=== PATIENT | female | born 1940 | race Caucasian/White ===

== ENCOUNTER → 2021-01-30 14:23 | Outpatient (CLI) | payer MEDICARE, SELFPAY ==
[2021-01-30 14:28] LABS: Campylobacter Not Detected (NotDetected); Clostridium Difficile A/B, PCR Not Detected (NotDetected); Plesimonas Shigalloides, PCR Not Detected (NotDetected); Salmonella, PCR Not Detected (NotDetected); Vibrio Cholerae Not Detected (NotDetected); Vibrio, PCR Not Detected (NotDetected); Yersinia Entercolitica, PCR Not Detected (NotDetected)
[2021-01-30 14:29] LABS: Adenovirus F 40/41, stool Not Detected (NotDetected); Astrovirus Not Detected (NotDetected); Cryptosporidium Not Detected (NotDetected); Cyclospora Cayetanesis Not Detected (NotDetected); Entamoeba histolytica Not Detected (NotDetected); Enteroaggregative E coli Not Detected (NotDetected); Enteropathogenic E coli Not Detected (NotDetected); Enterotoxigenic E coli Not Detected (NotDetected); Giardia lamblia Not Detected (NotDetected); Norovirus Not Detected (NotDetected); Rotavirus A Not Detected (NotDetected); Sapovirus Not Detected (NotDetected); Shiga-like toxin E coli Not Detected (NotDetected); Shigella Enterovasive E coli Not Detected (NotDetected)
== END ==
PROVIDERS: Visit Provider Internal Medicine Gastroenterology
DX: R19.7 Diarrhea, unspecified (principal)
CPT/HCPCS: 87506; 87507

== ENCOUNTER 2024-01-05 20:19 | Emergency (ER) | payer MEDICARE, SELFPAY ==
[2024-01-05 20:21] VITALS: BP 202/77; PULSE 70; RESP 16; TEMP 36.6; O2SAT 98; BMI 20.6
--- NOTE | 2024-01-05 21:00 | ED_ITS ---
Discharge Plan Disposition Patient Disposition: Home, Self-Care Condition: Good Prescriptions Prescriptions: New cephalexin 500 mg tablet 500 mg PO BID 10 Days Qty: 20 0RF mupirocin 2 % ointment 1 applic topical BID 7 Days Qty: 22 0RF No Action levothyroxine [Levo-T] 100 mcg tablet 100 mcg PO DAILY buspirone 15 mg tablet 15 mg PO BID sertraline [Zoloft] 50 mg tablet 50 mg PO DAILY cephalexin 500 mg capsule 500 mg PO BID 10 Days Qty: 20 0RF Referrals Follow up/Referrals: Vu Morelos MD [Primary Care Provider] - See instructions Activity Restrictions/Add. Instructions Additional Instructions/Restrictions: Monitor for temperature, redness, drainage Cleanse with soap and water and dry apply cream twice a day. Antibiotics as ordered Follow-up with primary care If symptoms worsen or do not improve return Clinical Impressions Clinical Impression: Puncture wound of abdomen with foreign body Instructions Patient Instructions: DI for Puncture Wound Print Language Print Language: Guatem[place] Discharge ED Provider: Nathalie Davenport General Adult HPI <Najma Roth ([facility]), SARAH - Last Filed: 01/05/24 21:13> General Chief complaint: Wound/Laceration Stated complaint: AO/ lac to LT leg Time Seen by Provider: 01/05/24 20:34 Mode of Arrival: Ambulatory Source of Information: Patient Limitations: No Limitations Description of Symptoms (Recalled from ER Triage Doc. by RN): PT reports that around 4pm she was picking tomotoes whem a thick dry weed cut her left lower leg around 4pm, reports that she was worried she would get a infection so thats why she came to ER, History of Present Illness HPI narrative: 84-year-old female presents for puncture wound with foreign body to left lower leg around 4 PM today while she was in the garden picking tomatoes. Patient states she was worried about having an infection so she wanted to checked out. Last known tetanus unknown. Related Data Home Medications ?Medication ?Instructions ?Recorded ?Confirmed buspirone 15 mg tablet 15 mg PO BID 10/27/18 10/27/18 levothyroxine 100 mcg tablet 100 mcg PO DAILY 10/27/18 10/27/18 (Levo-T) sertraline 50 mg tablet (Zoloft) 50 mg PO DAILY 10/27/18 10/27/18 Previous Rx's ?Medication ?Instructions ?Recorded cephalexin 500 mg capsule 500 mg PO BID skin infection 10 10/27/18 days #20 caps cephalexin 500 mg tablet 500 mg PO BID 10 days #20 tabs 01/05/24 mupirocin 2 % topical ointment 1 applic topical BID 7 days #22 01/05/24 grams Allergies Allergy/AdvReac Type Severity Reaction Status Date / Time Sulfa (Sulfonamide AdvReac Intermediate Verified 10/27/18 10:53 Antibiotics) PFS <Najma Roth ([facility]), [employer]LECT[employer] SYSTEMS DESIGN ENGINEER - Last Filed: 01/05/24 21:13> [facility] Disclaimer: The information contained in this section may have been updated after the patient was seen, as this information can be updated by other users. Social History Smoking Status: Never smoker alcohol intake: never substance use type: denies use current occupational status: retired Travel in the last 8 weeks: None household members: family housing: house <Najma Roth ([facility]), ELECTRICAL SYSTEMS DESIGN ENGINEER - Last Filed: 01/05/24 21:13> ROS Obtained: Yes Systems reviewed as appropriate & no additional complaints except as documented Physical Exam <Najma Roth ([facility]), ELECTR[employer] SYSTEM[employer] DESIGN ENGINEER - Last Filed: 01/05/24 21:13> General General appearance: alert and in no apparent distress Eye Eye exam: Present normal appearance and PERRL ENT ENT exam: Present normal exam Respiratory Respiratory exam: Present normal lung sounds bilaterally Cardiovascular Cardiovascular exam: Present regular rate and normal rhythm Expanded Lower Extremity Exam Left: Leg image: 2 1. Laceration with track foreign body present Neurological Exam Neurological exam: Present alert and oriented X3 Skin Skin exam: Present warm and other (A puncture wound) Medical Decision Making <Najma Roth ([facility]), ELECTRICAL SYSTEMS DESIGN ENGINEER - Last Filed: 01/05/24 21:13> Medical Records Medical records reviewed: Yes I reviewed the patient's medical records. Leonid Inquiry Pt receiving controlled substance: No Leonid was queried for this patient: No Vital Signs: 01/05/24 20:21 Temperature 97.9 F Temperature Source Oral Pulse Rate [Right] 70 Respiratory Rate 16 Blood Pressure [Right Arm] 202/77 H Blood Pressure Mean [Right Arm] 118 Blood Pressure Source [Right Arm] Automatic Cuff Blood Pressure Position [Right Arm] Sitting 02 Sat by Pulse Oximetry 98 Oxygen Delivery Method Room Air Orders (Tests/Meds): ED MEDICATIONS Discontinued Medications Generic Name Dose Route Start Last Admin Trade Name Freq PRN Reason Stop Dose Admin Cephalexin HCl 500 mg 01/05/24 21:06 01/05/24 21:12 Cephalexin 500mg Capsule PO 01/05/24 21:07 500 mg ONCE ONE Administration Tetanus/Reduced Diphtheria/Acell Pertussis 0.5 ml 01/05/24 21:07 01/05/24 21:15 Tet/Diphth/Pert-Adult 0.5ml Syringe IM 01/05/24 21:08 0.5 ml .ONCE ONE Administration Medical Decision Narrative: In summary patient is a 84-year-old female who presents to the emergency department for evaluation of puncture wound with foreign body to left lower extremity. Patient is hemodynamic stable upon arrival, afebrile. Laceration with puncture wound to the left lower extremity. Differential diagnosis includes laceration with foreign body. Initial workup will be conducted with while cleaning wound was noted foreign body present. Initial inventions include area was cleaned foreign body noted. Upon repeat evaluation area on leg was numbed with 4 mL 1% lidocaine, small incision and foreign body was removed with tweezers minimal blood loss. Given this patient is appropriate for discharge at this time we will do a prescription for Keflex 500mg p.o. for 10 days and Bactroban cream. Patient is to follow-up with primary care. Tetanus vaccine given. <Nathalie Davenport MD - Last Filed: 01/05/24 21:22> Vital Signs: 01/05/24 20:21 Temperature 97.9 F Temperature Source Oral Pulse Rate [Right] 70 Respiratory Rate 16 Blood Pressure [Right Arm] 202/77 H Blood Pressure Mean [Right Arm] 118 Blood Pressure Source [Right Arm] Automatic Cuff Blood Pressure Position [Right Arm] Sitting 02 Sat by Pulse Oximetry 98 Oxygen Delivery Method Room Air Orders (Tests/Meds): ED MEDICATIONS Discontinued Medications Generic Name Dose Route Start Last Admin Trade Name Freq PRN Reason Stop Dose Admin Cephalexin HCl 500 mg 01/05/24 21:06 01/05/24 21:12 Cephalexin 500mg Capsule PO 01/05/24 21:07 500 mg ONCE ONE Administration Tetanus/Reduced Diphtheria/Acell Pertussis 0.5 ml 01/05/24 21:07 01/05/24 21:15 Tet/Diphth/Pert-Adult 0.5ml Syringe IM 01/05/24 21:08 0.5 ml .ONCE ONE Administration Medical Decision Narrative: In summary patient is a 84-year-old female who presents to the emergency department for evaluation of puncture wound with foreign body to left lower extremity. Patient is hemodynamic stable upon arrival, afebrile. Laceration with puncture wound to the left lower extremity. Differential diagnosis includes laceration with foreign body. Initial workup will be conducted with while cleaning wound was noted foreign body present. Initial inventions include area was cleaned foreign body noted. Upon repeat evaluation area on leg was numbed with 4 mL 1% lidocaine, small incision and foreign body was removed with tweezers minimal blood loss. Given this patient is appropriate for discharge at this time we will do a prescription for Keflex 500mg p.o. for 10 days and Bactroban cream. Patient is to follow-up with primary care. Tetanus vaccine given. I was consulted by the [facility], and we discussed the complexity of the problems being addressed. I approved the treatment and management plan for this patient's care in the Emergency Department, thus performing a substantive portion of the medical decision making. I personally performed the foreign body removal as documented. Nathalie Davenport MD Procedures <[facility] ELECTRICAL SYSTEMS DESIGN ENGINEER - Last Filed: 01/05/24 21:13> Foreign Body Removal Time Out Performed: Yes Site: left Description of foreign body: other (Stick) Sedation/Analgesia: none Technique: removal with forceps and other (Small incision just above the foreign body removed with tweezers) Confirmed by:: direct visualization Complications: none Post-procedure exam: awake, alert <Nathalie Davenport MD - Last Filed: 01/05/24 21:22> Foreign Body Removal Site: lower extremity Technique: incision made to facilitate removal Neurovascular: no change from pre-procedure Critical Care <[facility] ELECTRICAL SYSTEMS DESIGN ENGINEER - Last Filed: 01/05/24 21:13> Critical Care Time Critical Care Time: No
[2024-01-05] MEDS: cephALEXin 500MG CAPSULE 500 MG PO (21:12)
[2024-01-05] MEDS: TET/DIPHTH/PERT-ADULT 0.5ML SYRINGE 0.5 ML IM (21:15)
[2024-01-05 21:19] VITALS: BP 186/87; PULSE 68; RESP 16; TEMP 36.6; O2SAT 100
--- NOTE | 2024-01-05 21:19 | PC.NURSE ---
Non adherent dressing placed, neuro intact distal to dressing
== END 2024-01-05 21:26 | disposition home or self-care (01) ==
PROVIDERS: Emergency Provider Emergency Medicine; PCP Family Medicine
DX: S81.842A Puncture wound with foreign body, left lower leg, initial encounter (principal); Z23 Encounter for immunization; W45.8XXA Other foreign body or object entering through skin, initial encounter
CPT/HCPCS: 10120; 90471; 90715; 99283